=== PATIENT | female | born 1960 | race African-American/Black ===

== ENCOUNTER 2019-08-15 16:27 | Observation (INO) | payer BC ==
[2019-08-15] MEDS ORDERED: DEXTROSE 40% GEL 15 GM TUBE ONE (17:58)
--- NOTE | 2019-08-15 18:08 | ER Document Report ---
ED Medical Screen (RME) - General Chief Complaint: Blood Pressure Problem Stated Complaint: DIZZY,LIGHTHEADED Time Seen by Provider: 08/15/19 17:46 Primary Care Provider: DERICK WILEY MD [Primary Care Provider] - Follow up as needed Mode of Arrival: Ambulatory Information source: Patient Notes: 59-year-old female presented to ED for complaint of elevated blood pressure dizziness with no cough no fever no congestion while I was in the room talking to her she became very confused change in mentation slurred speech. She states she was feeling hot and cold closed her eyes was not answered before few seconds woke back up told me that she felt like her sugar was either high or low her Accu-Chek was 114. No facial droop as yet. Temperature 99.1 blood pressure 187/82 pulse 95. Patient was alert oriented speaking in full sentences when I first walked in the room and her mentation changed as I was there talking to her. For she stated she was diabetic and she needed something to eat and slowly regressed from there. Have ordered a stroke protocol she has been sent to CT. I have greeted and performed a rapid initial assessment of this patient. A comprehensive ED assessment and evaluation of the patient, analysis of test results and completion of medical decision making process will be conducted by an additional ED providers. TRAVEL OUTSIDE OF THE [place] IN LAST 30 DAYS: No - Related Data Allergies/Adverse Reactions: influenza virus vaccine, specific [influenza virus vacc,specific] Allergy (Unknown, Verified 09/15/15 12:29) amoxicillin [Amoxicillin] Allergy (Verified 09/04/15 10:54) Past Medical History - Social History Frequency of alcohol use: None Drug Abuse: None - Past Medical History Cardiac Medical History: Reports: Hx Hypertension - borderline Denies: Hx Coronary Artery Disease, Hx Heart Attack Pulmonary Medical History: Denies: Hx Asthma, Hx Bronchitis, Hx COPD, Hx Pneumonia Neurological Medical History: Denies: Hx Cerebrovascular Accident, Hx Seizures Musculoskeltal Medical History: Denies Hx Arthritis - Immunizations Hx Diphtheria, Pertussis, Tetanus Vaccination: Yes Physical Exam - Vital signs Vitals: Temp Pulse Resp BP Pulse Ox 99.3 F 115 H 18 146/125 H 94 08/15/19 16:32 08/15/19 16:32 08/15/19 16:32 08/15/19 16:32 08/15/19 16:32 Course - Vital Signs Vital signs: Temp Pulse Resp BP Pulse Ox 99.3 F 115 H 18 146/125 H 94 08/15/19 16:32 08/15/19 16:32 08/15/19 16:32 08/15/19 16:32 08/15/19 16:32 Doctor's Discharge - Discharge Referrals: DERICK WILEY MD [Primary Care Provider] - Follow up as needed
--- NOTE | 2019-08-15 18:32 | RADIOLOGY REPORT (SQ) ---
EXAM DESCRIPTION: CT HEAD WITHOUT IMAGES COMPLETED DATE/TIME: 08/15/2019 6:06 pm REASON FOR STUDY: slurred speech; change in patient in front of prov COMPARISON: 07/24/2010 TECHNIQUE: Axial images acquired through the brain without intravenous contrast. Images reviewed wi th bone, brain and subdural windows. Additional sagittal and coronal reconstructions were generated. Images stored on PACS. All CT scanners at this facility use dose modulation, iterative reconstruction, and/or weight based d osing when appropriate to reduce radiation dose to as low as reasonably achievable (ALARA). [facility]: Dose Right [facility]: CareDose [facility]: Dose Right [facility]: Teradose 4D [facility]: Smart [employer] RADIATION DOSE: CT Rad equipment meets quality standard of care and radiation dose reduction techniq ues were employed. CTDIvol: 53.2 mGy. DLP: 1017 mGy-cm. mGy. LIMITATIONS: None. FINDINGS: VENTRICLES: Normal size and contour. CEREBRUM: No masses. No hemorrhage. No midline shift. No evidence for acute infarction. Normal gra y/white matter differentiation. No areas of low density in the white matter. CEREBELLUM: No masses. No hemorrhage. No alteration of density. No evidence for acute infarction. EXTRAAXIAL SPACES: No fluid collections. No masses. ORBITS AND GLOBE: No intra- or extraconal masses. Normal contour of globe without masses. CALVARIUM: No fracture. PARANASAL SINUSES: No fluid or mucosal thickening. SOFT TISSUES: No mass or hematoma. OTHER: No other significant finding. IMPRESSION: NORMAL BRAIN CT WITHOUT CONTRAST. EVIDENCE OF ACUTE STROKE: NO. COMMENT: Findings were reported to Radha in in the emergency room at 1825 hours on this date. Quality ID # [id number]: Final reports with documentation of one or more dose reduction techniques (e.g., Au tomated exposure control, adjustment of the mA and/or kV according to patient size, use of iterative reconstruction technique) TECHNICAL DOCUMENTATION: JOB ID: [id number] 2010 [employer]- All Rights Reserved Reading location - IP/workstation name: [email or web address]
[2019-08-15 18:37] LABS: ABSOLUTE LYMPHOCYTES (AUTO) 0.9 10^3/uL (0.5-4.7); ABSOLUTE MONOCYTES (AUTO) 0.3 10^3/uL (0.1-1.4); ABSOLUTE NEUT (AUTO) 4.5 10^3/uL (1.7-8.2); BASOPHILS % (AUTO) 0.4 % (0-2); EOSINOPHILS % (AUTO) 0.7 % (0-6); HEMATOCRIT 39.2 % (36.0-47.0); HEMOGLOBIN 13.4 g/dL (12.0-15.5); LYMPHOCYTES % (AUTO) 15.7 % (13-45); MEAN CORPUSCULAR HEMOGLOBIN 30.2 pg (27.0-33.4); MEAN CORPUSCULAR HGB CONC 34.2 g/dL (32.0-36.0); MEAN CORPUSCULAR VOLUME 88 fl (80-97); MONOCYTES % (AUTO) 5.4 % (3-13); PLATELET COUNT 252 10^3/uL (150-450); RED BLOOD COUNT 4.44 10^6/uL (3.72-5.28); RED CELL DISTRIBUTION WIDTH 13.3 % (11.5-14.0); SEGMENTED NEUTROPHILS % (AUTO) 77.8 % (42-78); TOTAL CELLS COUNTED % (AUTO) 100 %; WHITE BLOOD COUNT 5.8 10^3/uL (4.0-10.5)
--- NOTE | 2019-08-15 18:38 | RADIOLOGY REPORT (SQ) ---
EXAM DESCRIPTION: CHEST SINGLE VIEW IMAGES COMPLETED DATE/TIME: 08/15/2019 6:09 pm REASON FOR STUDY: slurred speech; change in front of provider COMPARISON: None. EXAM PARAMETERS: NUMBER OF VIEWS: One view. TECHNIQUE: Single frontal radiographic view of the chest acquired. RADIATION DOSE: NA LIMITATIONS: None. FINDINGS: LUNGS AND PLEURA: No opacities, masses or pneumothorax. No pleural effusion. MEDIASTINUM AND HILAR STRUCTURES: No masses. Contour normal. HEART AND VASCULAR STRUCTURES: Heart normal in size. Normal vasculature. BONES: No acute findings. HARDWARE: None in the chest. OTHER: No other significant finding. IMPRESSION: NO ACUTE RADIOGRAPHIC FINDING IN THE CHEST. TECHNICAL DOCUMENTATION: JOB ID: [id number] 2010 [employer]- All Rights Reserved Reading location - IP/workstation name: [email or web address]
[2019-08-15 18:42] LABS: INTERNATIONAL RATION (INR) 1.03; PROTHROMBIN TIME 13.5 SEC (11.4-15.4)
[2019-08-15 18:50] LABS: ALBUMIN 4.8 g/dL (3.5-5.0); ALKALINE PHOSPHATASE 92 U/L (38-126); ANION GAP 11 (5-19); ASPARTATE AMINO TRANSFERASE 25 U/L (14-36); BILIRUBIN,DIRECT 0.1 mg/dL (0.0-0.4); BILIRUBIN,TOTAL 0.6 mg/dL (0.2-1.3); BLOOD UREA NITROGEN 14 mg/dL (7-20); CALCIUM 9.8 mg/dL (8.4-10.2); CARBON DIOXIDE 25 mmol/L (22-30); CHLORIDE 101 mmol/L (98-107); CREATINE KINASE 156 U/L (30-135); GLUCOSE 148 mg/dL (75-110); POTASSIUM 4.3 mmol/L (3.6-5.0); TOTAL PROTEIN 8.2 g/dL (6.3-8.2)
[2019-08-15 19:02] LABS: CREATINE KINASE MB 1.16 ng/mL (<4.55); TROPONIN I < 0.012 ng/mL
[2019-08-15] MEDS ORDERED: NORMAL SALINE 1000 ML 1,000 ML IV ONE (19:11)
[2019-08-15 19:50] LABS: PHOSPHORUS 3.6 mg/dL (2.5-4.5)
--- NOTE | 2019-08-15 19:56 | ER Document Report ---
ED General - General Chief Complaint: Blood Pressure Problem Stated Complaint: DIZZY,LIGHTHEADED Time Seen by Provider: 08/15/19 17:46 Primary Care Provider: DERICK WILEY MD [Primary Care Provider] - Follow up as needed Mode of Arrival: Ambulatory Information source: Patient TRAVEL OUTSIDE OF THE [place] IN LAST 30 DAYS: No - HPI Notes: 59-year-old female history of squamous cell skin cancer of leg in remission, hyperlipidemia, peripheral vertigo presents with 2 days of lightheadedness, generalized weakness, feeling "like I am going to pass out" and 2 to 3 weeks of intermittent chest pain. Chest pain described as "hurts when my heart beats" occurring several times throughout the day lasting for approximately 10 minutes occurring with exertion and at rest with more frequent episodes in the last few days. Patient denies any cardiac history (had stress test 5 years ago which was negative), history says hypertension and diabetes but patient and daughter state that she has "pre-hypertension and pre-diabetes." Patient referred to ED by prior PCP who measured a fever of 101.? at outpatient office. 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 patient denies cough, PE history, lower extremity edema, recent travel/surgery/immobilization, family hypercoagulability history, active cancer, focal weakness/numbness. Patient initially seen by TELECOMMUNICATION ENGINEER who is in the room evaluating patient when patient had ep isode of global weakness unable to lift any limbs against gravity and slurred speech lasting unknown duration. Patient had immediate head CT and is now back to pre episode baseline. - Related Data Allergies/Adverse Reactions: influenza virus vaccine, specific [influenza virus vacc,specific] Allergy (Unknown, Verified 09/15/15 12:29) amoxicillin [Amoxicillin] Allergy (Verified 09/04/15 10:54) Past Medical History - General Information source: Patient - Social History Smoking Status: Never Smoker Frequency of alcohol use: None Drug Abuse: None Patient has suicidal ideation: No Patient has homicidal ideation: No - Past Medical History Cardiac Medical History: Reports: None, Hx Hypercholesterolemia, Hx Hypertension - borderline Denies: Hx Coronary Artery Disease, Hx Heart Attack Pulmonary Medical History: Reports: None Denies: Hx Asthma, Hx Bronchitis, Hx COPD, Hx Pneumonia Neurological Medical History: Denies: Hx Cerebrovascular Accident, Hx Seizures Musculoskeletal Medical History: Denies Hx Arthritis - Immunizations Hx Diphtheria, Pertussis, Tetanus Vaccination: Yes Review of Systems - Review of Systems Notes: REVIEW OF SYSTEMS: CONSTITUTIONAL : Endorses fever, denies sweats. EENT: Endorses recent sinus congestion, endorses throat pain CARDIOVASCULAR: Endorses chest pain, denies JULISSA RESPIRATORY: Denies cough, denies shortness of breath. GASTROINTESTINAL: Denies abdominal pain, nausea/vomiting. GENITOURINARY: Denies difficulty urinating, painful urination. FEMALE GENITOURINARY: Denies abnormal vaginal bleeding, vaginal discharge. MUSCULOSKELETAL: Denies neck pain, back pain. SKIN: Denies rash or new skin lesions. HEMATOLOGIC : Denies easy bruising or bleeding. LYMPHATIC: Denies swollen, enlarged glands. NEUROLOGICAL: Denies headache, denies change in gait. PSYCHIATRIC: Denies anxiety or stress or depression. Physical Exam - Vital signs Vitals: Temp Pulse Resp BP Pulse Ox 99.3 F 115 H 18 146/125 H 94 08/15/19 16:32 08/15/19 16:32 08/15/19 16:32 08/15/19 16:32 08/15/19 16:32 - Notes Notes: PHYSICAL EXAMINATION: GENERAL: Well-appearing, well-nourished and in no acute distress. HEAD: Atraumatic, normocephalic. EYES: Pupils equal round and appropriate constriction, sclera anicteric, conjunctiva are normal. ENT: nares patent, moist mucous membranes. NECK: Normal range of motion, supple without lymphadenopathy, no carotid bruits LUNGS: Breath sounds clear to auscultation bilaterally and equal. No wheezes rales or rhonchi. HEART: Regular rate without murmurs, rubs, or gallops ABDOMEN: Soft, nontender, no guarding, no masses, no CVAT EXTREMITIES: Normal range of motion, no pitting or edema. No cyanosis. NEUROLOGICAL: Awake, alert, conversing appropriately, moves all extremities spontaneously. Cranial nerves II through XII intact, 5 out of 5 strength in all extremities, normal sensation, normal speech, [id number] within normal limits PSYCH: Normal mood, normal affect. SKIN: Warm, Dry, normal turgor, few healed biopsy scars noted. Course - Re-evaluation Re-evalutation: 08/15/19 20:00 Constellation of symptoms with wide differential including flu, covid-19, electrolyte abnormalities, ACS, PE, TIA. Patient on covid precautions in the ED. Initial EKG with no signs of acute ischemia and patient has remained on monitor throughout ED evaluation. No bleed and no acute abnormalities on head CT. Chest x-ray without emergent findings. Will obtain a electrolytes, dimer, troponin, flu test, coronavirus test and admit for monitoring, ACS and TIA rule out. 08/15/19 21:05 No emergent findings on initial work-up. Given concern for possible ACS versus arrhythmia versus TIA discussed patient with Dr. Tank Lynne who has accepted the patient for telemetry obvious admission. - Vital Signs Vital signs: Temp Pulse Resp BP Pulse Ox 99.1 F 95 19 187/82 H 100 08/15/19 18:00 08/15/19 18:00 08/15/19 18:47 08/15/19 18:00 08/15/19 18:47 - Laboratory Result Diagrams: 08/15/19 18:22 08/15/19 18:22 Laboratory results interpreted by me: 08/15/19 08/15/19 17:58 18:22 Glucose 148 H POC Glucose 114 H Creatine Kinase 156 H Discharge - Discharge Clinical Impression: Chest pain, Pre-syncope Condition: Good Disposition: ADMITTED OBSERVATION Admitting Provider: Maged (Hospitalist) Unit Admitted: Telemetry Referrals: DERICK WILEY MD [Primary Care Provider] - Follow up as needed
[2019-08-15 20:49] LABS: A TYPE INFLUENZA AG NEGATIVE (NEGATIVE); B INFLUENZA AG NEGATIVE (NEGATIVE)
[2019-08-15] MEDS ORDERED: DOCUSATE SODIUM 100 MG CAPSULE PO PRN (21:10)
[2019-08-15] MEDS ORDERED: ACETAMINOPHEN 325 MG TABLET PO PRN (21:10)
--- NOTE | 2019-08-15 21:48 | EKG REPORT ---
SEVERITY:- ABNORMAL ECG - SINUS RHYTHM LEFT ATRIAL ABNORMALITY PROBABLE LEFT VENTRICULAR HYPERTROPHY BORDERLINE T ABNORMALITIES, INFERIOR LEADS : Confirmed by: Susu De Luna MD 15-Aug-2019 21:48:14
[2019-08-16] MEDS: ATORVASTATIN CALCIUM 40 MG TABLET PO SCH ×2 (01:28→21:47)
[2019-08-16] MEDS: HEPARIN SOD (PORCINE) 5,000 UNIT/ML 1 ML VIAL SUBCUT SCH ×4 (01:28→21:47)
[2019-08-16 03:38] LABS: ABSOLUTE EOSINOPHILS # (AUTO) 0.1 10^3/uL (0.0-0.6); ABSOLUTE LYMPHOCYTES (AUTO) 1.3 10^3/uL (0.5-4.7); ABSOLUTE MONOCYTES (AUTO) 0.5 10^3/uL (0.1-1.4); ABSOLUTE NEUT (AUTO) 3.6 10^3/uL (1.7-8.2); BASOPHILS % (AUTO) 0.6 % (0-2); EOSINOPHILS % (AUTO) 2.1 % (0-6); HEMATOCRIT 37.4 % (36.0-47.0); HEMOGLOBIN 12.7 g/dL (12.0-15.5); LYMPHOCYTES % (AUTO) 23.1 % (13-45); MEAN CORPUSCULAR HEMOGLOBIN 30.1 pg (27.0-33.4); MEAN CORPUSCULAR HGB CONC 33.9 g/dL (32.0-36.0); MEAN CORPUSCULAR VOLUME 89 fl (80-97); MONOCYTES % (AUTO) 9.6 % (3-13); PLATELET COUNT 202 10^3/uL (150-450); RED BLOOD COUNT 4.21 10^6/uL (3.72-5.28); RED CELL DISTRIBUTION WIDTH 13.3 % (11.5-14.0); SEGMENTED NEUTROPHILS % (AUTO) 64.6 % (42-78); TOTAL CELLS COUNTED % (AUTO) 100 %; WHITE BLOOD COUNT 5.5 10^3/uL (4.0-10.5)
[2019-08-16 03:39] LABS: URINE AMPHETAMINES SCREEN NEGATIVE; URINE BARBITURATES SCREEN NEGATIVE; URINE BENZODIAZEPINES SCREEN NEGATIVE; URINE COCAINE SCREEN NEGATIVE; URINE MARIJUANA (THC) SCREEN NEGATIVE; URINE METHADONE SCREEN NEGATIVE; URINE PHENCYCLIDINE SCREEN NEGATIVE
[2019-08-16 04:21] LABS: TROPONIN I < 0.012 ng/mL
[2019-08-16 04:26] LABS: CHOLESTEROL 186.98 mg/dL (0-200); DIRECT LDL 124 mg/dL (<100); TRIGLYCERIDES 61 mg/dL (<150); VLDL CHOLESTEROL 12.2 mg/dL (10-31)
[2019-08-16] MEDS ORDERED: GLUCAGON,HUMAN RECOMB 1 MG INJ IM PRN (05:50)
[2019-08-16] MEDS ORDERED: DEXTROSE 50%-WATER 25 GM/50 ML DISP.SYRIN IV PRN ×2 (05:50)
[2019-08-16] MEDS ORDERED: DEXTROSE 40% GEL 15 GM TUBE PO PRN ×2 (05:50)
--- NOTE | 2019-08-16 06:30 | PDOC H&P ---
History of Present Illness Admission Date/PCP: 08/15/19 21:27 DERICK WILEY MD Patient complains of: Hypertension fever History of Present Illness: NAINA STEPHENS is a 59 year old female with a past medical history of sinusitis, dyslipidemia, diet-controlled diabetes and benign positional vertigo. She is referred to the emergency department by primary care provider after finding elevated blood pressure in the 180 range and a fever of greater than 100.2. In the emergency department she has multiple complaints. Elevated blood pressure, fever, and dizziness when she changes position. Her blood pressure is verified to be elevated and complains of 2 out of 5 dull, nonradiating intermittent left-sided chest pain not associated with shortness of breath, cough palpitations nausea or vomiting. She denies recent cardiac stress test. While in the emergency department she has a brief episode of global weakness and aphasia which resolved spontaneously without residual deficit. Her fever has not returned. She denies shortness of breath, cough, abdominal pain or diarrhea. 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 She is very concerned for exposure to covid 19. Subsequently a covid 19 test is obtained and pending. She is referred to the hospitalist for observation without complaints. Past Medical History Cardiac Medical History: Reports: Hyperlipidema Denies: Coronary Artery Disease, Myocardial Infarction Pulmonary Medical History: Reports: None Denies: Asthma, Bronchitis, Chronic Obstructive Pulmonary Disease (COPD), Pneumonia Neurological Medical History: Denies: Seizures Endocrine Medical History: Reports: Diabetes Mellitus Type 2 Musculoskeltal Medical History: Denies: Arthritis Psychiatric Medical History: Denies: Depression, Tobacco Dependency Hematology: Denies: Anemia Social History Information Source: Patient Smoking Status: Never Smoker Frequency of Alcohol Use: None Hx Recreational Drug Use: No Drugs: None Hx Prescription Drug Abuse: No - Advance Directive Resuscitation Status: Full Code Family History Family History: DM, Hypertension Parental Family History Reviewed: Yes Children Family History Reviewed: Yes Sibling(s) Family History Reviewed.: Yes Medication/Allergy Home Medications: Aspirin [Aspirin EC] 81 mg PO DAILY 09/04/15 Fexofenadine/Pseudoephedrine [Zoila-D 12 Hour Tablet] 1 each PO DAILY 09/04/15 Allergies/Adverse Reactions: influenza virus vaccine, specific [influenza virus vacc,specific] Allergy (Unknown, Verified 09/15/15 12:29) amoxicillin [Amoxicillin] Allergy (Verified 09/04/15 10:54) Review of Systems Constitutional: ABSENT: chills, fever(s), headache(s), weight gain, weight loss Eyes: ABSENT: visual disturbances Ears: ABSENT: hearing changes Cardiovascular: ABSENT: chest pain, dyspnea on exertion, edema, orthropnea, palpitations Respiratory: ABSENT: cough, hemoptysis Gastrointestinal: ABSENT: abdominal pain, constipation, diarrhea, hematemesis, hematochezia, nausea, vomiting Genitourinary: ABSENT: dysuria, hematuria Musculoskeletal: ABSENT: joint swelling Integumentary: ABSENT: rash, wounds Neurological: ABSENT: abnormal gait, abnormal speech, confusion, dizziness, focal weakness, syncope Psychiatric: ABSENT: anxiety, depression, homidical ideation, suicidal ideation Endocrine: ABSENT: cold intolerance, heat intolerance, polydipsia, polyuria Hematologic/Lymphatic: ABSENT: easy bleeding, easy bruising Physical Exam Vital Signs: Temp Pulse Resp BP Pulse Ox 98.9 F 74 16 160/58 H 97 08/16/19 02:28 08/16/19 04:00 08/16/19 04:00 08/16/19 04:00 08/16/19 04:00 Intake & Output 08/14/19 08/15/19 08/16/19 11:59 11:59 11:59 Intake Total 1240 Output Total 650 Balance 590 Weight 78.9 kg General appearance: PRESENT: no acute distress, well-developed, well-nourished Head exam: PRESENT: atraumatic, normocephalic Eye exam: PRESENT: conjunctiva pink, EOMI, PERRLA. ABSENT: scleral icterus Ear exam: PRESENT: normal external ear exam Mouth exam: PRESENT: moist, tongue midline Neck exam: ABSENT: carotid bruit, JVD, lymphadenopathy, thyromegaly Respiratory exam: PRESENT: clear to auscultation taylor. ABSENT: rales, rhonchi, wheezes Cardiovascular exam: PRESENT: RRR. ABSENT: diastolic murmur, rubs, systolic murmur Pulses: PRESENT: normal dorsalis pedis pul Vascular exam: PRESENT: normal capillary refill GI/Abdominal exam: PRESENT: normal bowel sounds, soft. ABSENT: distended, guarding, mass, organolmegaly, rebound, tenderness Rectal exam: PRESENT: deferred Extremities exam: PRESENT: full ROM. ABSENT: calf tenderness, clubbing, pedal edema Neurological exam: PRESENT: alert, awake, oriented to person, oriented to place, oriented to time, oriented to situation, CN II-XII grossly intact. ABSENT: motor sensory deficit Psychiatric exam: PRESENT: appropriate affect, normal mood. ABSENT: homicidal ideation, suicidal ideation Skin exam: PRESENT: dry, intact, warm. ABSENT: cyanosis, rash Results Laboratory Results: 08/16/19 03:30 08/15/19 18:22 08/15/19 08/15/19 08/15/19 18:22 18:22 18:22 WBC 5.8 RBC 4.44 Hgb 13.4 Hct 39.2 MCV 88 MCH 30.2 MCHC 34.2 RDW 13.3 Plt Count 252 Seg Neutrophils % 77.8 Sodium 137.1 Potassium 4.3 Chloride 101 Carbon Dioxide 25 Anion Gap 11 BUN 14 Creatinine 0.88 Est GFR ( Amer) > 60 Glucose 148 H Lactic Acid Calcium 9.8 Phosphorus 3.6 Magnesium 2.2 Total Bilirubin 0.6 AST 25 Alkaline Phosphatase 92 Total Protein 8.2 Albumin 4.8 Triglycerides Cholesterol LDL Cholesterol Direct VLDL Cholesterol HDL Cholesterol TSH 08/15/19 08/15/19 08/16/19 18:22 20:16 03:30 WBC 5.5 RBC 4.21 Hgb 12.7 Hct 37.4 MCV 89 MCH 30.1 MCHC 33.9 RDW 13.3 Plt Count 202 Seg Neutrophils % 64.6 Sodium Potassium Chloride Carbon Dioxide Anion Gap BUN Creatinine Est GFR ( Amer) Glucose Lactic Acid 0.8 Calcium Phosphorus Magnesium Total Bilirubin AST Alkaline Phosphatase Total Protein Albumin Triglycerides Cholesterol LDL Cholesterol Direct VLDL Cholesterol HDL Cholesterol TSH 0.74 08/16/19 03:30 WBC RBC Hgb Hct MCV MCH MCHC RDW Plt Count Seg Neutrophils % Sodium Potassium Chloride Carbon Dioxide Anion Gap BUN Creatinine Est GFR ( Amer) Glucose Lactic Acid Calcium Phosphorus Magnesium Total Bilirubin AST Alkaline Phosphatase Total Protein Albumin Triglycerides 61 Cholesterol 186.98 LDL Cholesterol Direct 124 H VLDL Cholesterol 12.2 HDL Cholesterol 46 TSH 08/15/19 08/15/19 08/16/19 18:22 18:22 03:30 Creatine Kinase 156 H 162 H CK-MB (CK-2) 1.16 Troponin I < 0.012 08/16/19 03:30 Creatine Kinase CK-MB (CK-2) 1.10 Troponin I < 0.012 Impressions: Head CT 08/15/19 00:00 IMPRESSION: NORMAL BRAIN CT WITHOUT CONTRAST. EVIDENCE OF ACUTE STROKE: NO. Chest X-Ray 08/15/19 18:00 IMPRESSION: NO ACUTE RADIOGRAPHIC FINDING IN THE CHEST. Assessment and Plan - Diagnosis (1) Fever Is this a current diagnosis for this admission?: Yes Plan: Unclear cause without recurrence, indirect contact with healthcare providers on a daily basis. Coronavirus 18 test pending. Continue isolation. (2) Diabetes Is this a current diagnosis for this admission?: Yes Plan: SOFY inhibitor and Humalog sliding scale, follow-up A1c (3) Chest pain Is this a current diagnosis for this admission?: Yes Plan: Atypical chest pain though the patient's pain is atypical there are multiple risk factors for coronary artery disease and subsequently will observe and evaluation of acute coronary syndrome versus coronary artery disease with anginal equivalents. Cardiac monitoring blood pressure Q6 hours ,TSH, lipid profile, serial cardiac enzymes and outpatient cardiac stress test (4) TIA (transient ischemic attack) Is this a current diagnosis for this admission?: Yes Plan: CVA care set deployed, permissive hypertension, follow-up risk factor evaluation, MRI and carotid Doppler. - Time Time Spent with patient: 25-34 minutes - Inpatient Certification Medical Necessity: Need Close Monitoring Due to Risk of Patient Decompensation
[2019-08-16 08:41] LABS: C-REACTIVE PROTEIN < 5.0 mg/L (<10.0)
--- NOTE | 2019-08-16 09:13 | RADIOLOGY REPORT (SQ) ---
EXAM DESCRIPTION: MRI HEAD WITHOUT IMAGES COMPLETED DATE/TIME: 08/16/2019 8:50 am REASON FOR STUDY: ataxia COMPARISON: CT dated 08/15/2019. TECHNIQUE: Multiplanar imaging includes non-contrasted T1, T2, FLAIR, and Diffusion with ADC map seq uences. Images stored on PACS. LIMITATIONS: None. FINDINGS: ANATOMY: No anomalies. Normal vascular flow voids. Pituitary fossa normal. CSF SPACES: Normal in size and contour. No hemorrhage. CEREBRUM: A few high-signal intensity lesions scattered throughout the white matter on FLAIR imaging with distribution suggesting chronic micro-vascular ischemic change. Sulci and gyri normal in size a nd contour. No evidence of hemorrhage, mass or extraaxial fluid collection. POSTERIOR FOSSA: No signal alteration. No hemorrhage. No edema, masses or mass effect. Internal jony tory canals, cerebello-pontine angles, mastoids normal. DIFFUSION: Negative for acute or sub-acute infarction. ORBITS: No masses. Globes normal. PARANASAL SINUSES: No fluid levels. Mucosa normal. OTHER: No other significant finding. IMPRESSION: MINIMAL MICROVASCULAR ISCHEMIC CHANGE. OTHERWISE NORMAL STUDY. EVIDENCE OF ACUTE STROKE: NO. TECHNICAL DOCUMENTATION: JOB ID: [id number] 2010 [employer]- All Rights Reserved Reading location - IP/workstation name: [email or web address]
--- NOTE | 2019-08-16 11:46 | PDOC PROGRESS REPORT ---
Subjective Progress Note for:: 08/16/19 Subjective:: 59 year old female with a past medical history of sinusitis, dyslipidemia, diet- controlled diabetes and benign positional vertigo. She is referred to the emergency department by primary care provider after finding elevated blood pressure in the 180 range and a fever of greater than 100.2. In the emergency department she has multiple complaints. Elevated blood pressure, fever, and dizziness when she changes position. Her blood pressure is verified to be elevated and complains of 2 out of 5 dull, nonradiating intermittent left-sided chest pain not associated with shortness of breath, cough palpitations nausea or vomiting. She denies recent cardiac stress test. While in the emergency department she has a brief episode of global weakness and aphasia which resolved spontaneously without residual deficit. Her fever has not returned. She denies shortness of breath, cough, abdominal pain or diarrhea. 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 She is very concerned for exposure to covid 19. Subsequently a covid 19 test is obtained and pending. She is referred to the hospitalist for observation without complaints. [id number] female admitted with a questionable fever and dizziness. Coronavirus testing is pending. MRI was done and stroke is ruled out. Comfortable in the bed communicating well. Not in distress. No acute events since the admission. Reason For Visit: TIA Physical Exam Vital Signs: Temp Pulse Resp BP Pulse Ox 98.5 F 84 20 130/56 H 98 08/16/19 08:00 08/16/19 08:00 08/16/19 08:00 08/16/19 08:00 08/16/19 08:00 Intake & Output 08/15/19 08/16/19 08/17/19 06:59 06:59 06:59 Intake Total 1240 Output Total 650 Balance 590 Weight 78.9 kg General appearance: PRESENT: no acute distress, well-developed Head exam: PRESENT: atraumatic Eye exam: PRESENT: PERRLA Mouth exam: PRESENT: moist, tongue midline Teeth exam: PRESENT: poor dentation Neck exam: ABSENT: carotid bruit, JVD, lymphadenopathy, thyromegaly Cardiovascular exam: PRESENT: RRR. ABSENT: diastolic murmur, rubs, systolic murmur GI/Abdominal exam: PRESENT: normal bowel sounds, soft. ABSENT: distended, guarding, mass, organolmegaly, rebound, tenderness Rectal exam: PRESENT: deferred Extremities exam: PRESENT: full ROM. ABSENT: calf tenderness, clubbing, pedal edema Neurological exam: PRESENT: alert, awake, oriented to person, oriented to place, oriented to time, oriented to situation, CN II-XII grossly intact. ABSENT: motor sensory deficit Psychiatric exam: PRESENT: appropriate affect, normal mood. ABSENT: homicidal ideation, suicidal ideation Results Laboratory Results: 08/16/19 03:30 08/15/19 18:22 08/15/19 08/15/19 08/15/19 18:22 18:22 18:22 WBC 5.8 RBC 4.44 Hgb 13.4 Hct 39.2 MCV 88 MCH 30.2 MCHC 34.2 RDW 13.3 Plt Count 252 Seg Neutrophils % 77.8 Sodium 137.1 Potassium 4.3 Chloride 101 Carbon Dioxide 25 Anion Gap 11 BUN 14 Creatinine 0.88 Est GFR ( Amer) > 60 Glucose 148 H Lactic Acid Calcium 9.8 Phosphorus 3.6 Magnesium 2.2 Ferritin Total Bilirubin 0.6 AST 25 Alkaline Phosphatase 92 C-Reactive Protein Total Protein 8.2 Albumin 4.8 Triglycerides Cholesterol LDL Cholesterol Direct VLDL Cholesterol HDL Cholesterol TSH 08/15/19 08/15/19 08/16/19 18:22 20:16 03:30 WBC 5.5 RBC 4.21 Hgb 12.7 Hct 37.4 MCV 89 MCH 30.1 MCHC 33.9 RDW 13.3 Plt Count 202 Seg Neutrophils % 64.6 Sodium Potassium Chloride Carbon Dioxide Anion Gap BUN Creatinine Est GFR ( Amer) Glucose Lactic Acid 0.8 Calcium Phosphorus Magnesium Ferritin Total Bilirubin AST Alkaline Phosphatase C-Reactive Protein Total Protein Albumin Triglycerides Cholesterol LDL Cholesterol Direct VLDL Cholesterol HDL Cholesterol TSH 0.74 08/16/19 08/16/19 03:30 03:30 WBC RBC Hgb Hct MCV MCH MCHC RDW Plt Count Seg Neutrophils % Sodium Potassium Chloride Carbon Dioxide Anion Gap BUN Creatinine Est GFR ( Amer) Glucose Lactic Acid Calcium Phosphorus Magnesium Ferritin 113.00 Total Bilirubin AST Alkaline Phosphatase C-Reactive Protein < 5.0 Total Protein Albumin Triglycerides 61 Cholesterol 186.98 LDL Cholesterol Direct 124 H VLDL Cholesterol 12.2 HDL Cholesterol 46 TSH 08/15/19 08/15/19 08/16/19 18:22 18:22 03:30 Creatine Kinase 156 H 162 H CK-MB (CK-2) 1.16 Troponin I < 0.012 08/16/19 03:30 Creatine Kinase CK-MB (CK-2) 1.10 Troponin I < 0.012 Impressions: Head CT 08/15/19 00:00 IMPRESSION: NORMAL BRAIN CT WITHOUT CONTRAST. EVIDENCE OF ACUTE STROKE: NO. Chest X-Ray 08/15/19 18:00 IMPRESSION: NO ACUTE RADIOGRAPHIC FINDING IN THE CHEST. Head MRI 08/16/19 00:00 IMPRESSION: MINIMAL MICROVASCULAR ISCHEMIC CHANGE. OTHERWISE NORMAL STUDY. EVIDENCE OF ACUTE STROKE: NO. Assessment and Plan - Diagnosis (1) Fever Is this a current diagnosis for this admission?: Yes Plan: Unclear cause without recurrence, indirect contact with healthcare providers on a daily basis. Coronavirus 18 test pending. Continue isolation. 08/16/2019-patient admitted with questionable fever T-max is 98.5 this morning. Coronavirus testing is pending plan is to continue to keep her in a droplet isolation. Patient is not on antibiotics at this time. (2) Diabetes Is this a current diagnosis for this admission?: No Plan: SOFY inhibitor and Humalog sliding scale, follow-up A1c 08/16/2019-patient has history of type 2 diabetes mellitus plan is to continue insulin sliding scale. Hemoglobin A1c 7.1. Diet exercise weight loss lifestyle modifications are discussed with the patient. (3) Chest pain Is this a current diagnosis for this admission?: Yes Plan: Atypical chest pain though the patient's pain is atypical there are multiple risk factors for coronary artery disease and subsequently will observe and evaluation of acute coronary syndrome versus coronary artery disease with anginal equivalents. Cardiac monitoring blood pressure Q6 hours ,TSH, lipid profile, serial cardiac enzymes and outpatient cardiac stress test 08/16/2019-patient complaining of nonspecific chest pain in the emergency room troponins are negative so far. (4) TIA (transient ischemic attack) Is this a current diagnosis for this admission?: Yes Plan: CVA care set deployed, permissive hypertension, follow-up risk factor evaluation, MRI and carotid Doppler. 08/16/2019-CVA/stroke protocol was implemented CT head is negative for acute pathology, MRI is negative for acute pathology. Doppler is pending. Stroke is unlikely. (5) HTN (hypertension) Is this a current diagnosis for this admission?: No Plan: 08/16/2019-patient has history of chronic essential hypertension blood pressure is 130/56. Stable. Plan is to continue the home medications at this time.
[2019-08-16] MEDS: AMLODIPINE BESYLATE 2.5 MG TABLET PO SCH (12:22)
[2019-08-16] MEDS: LOSARTAN POTASSIUM 25 MG TABLET PO SCH (12:22)
[2019-08-16 12:25] LABS: CREATINE KINASE MB 0.97 ng/mL (<4.55)
[2019-08-16 12:30] LABS: TROPONIN I < 0.012 ng/mL
--- NOTE | 2019-08-16 14:54 | RADIOLOGY REPORT (SQ) ---
EXAM DESCRIPTION: CAROTID DOPPLER IMAGES COMPLETED DATE/TIME: 08/16/2019 2:22 pm REASON FOR STUDY: tia COMPARISON: 07/29/2010. TECHNIQUE: Grayscale ultrasound, Doppler velocity and spectra, and color Doppler images acquired of the extra-cranial carotid and vertebral arteries. Images stored on PACS. LIMITATIONS: None. FINDINGS: RIGHT CAROTID CCA Velocities: Within normal limits. ICA Velocities Peak systolic 0.97 m/s. End diastolic 0.26 m/s. Proximal ICA/CCA peak systolic ratio 1.2. Spectra normal. No significant plaque. LEFT CAROTID CCA Velocities: Within normal limits. ICA Velocities Peak systolic 1.05 m/s. End diastolic 0.3 m/s. Proximal ICA/CCA peak systolic ratio 1.3. Spectra normal. No significant plaque. VERTEBRAL ARTERIES: Antegrade flow. Normal waveforms. SUBCLAVIAN ARTERIES: No finding. OTHER: No other significant finding. IMPRESSION: NO HEMODYNAMICALLY SIGNIFICANT STENOSIS. COMMENT: Quality ID #[id number]: Velocity criteria are extrapolated from the diameter data as defined by t he Society of Radiologists in Ultrasound Consensus Conference. Radiology 2003: 229; 340-346. TECHNICAL DOCUMENTATION: JOB ID: [id number] 2010 [employer]- All Rights Reserved Reading location - IP/workstation name: [email or web address]
[2019-08-16] MEDS: INSULIN LISPRO 100 UNIT/ML 3 ML VIAL SUBCUT SCH ×2 (16:14→17:46)
[2019-08-16 20:06] LABS: CREATINE KINASE MB 0.65 ng/mL (<4.55)
[2019-08-16 20:12] LABS: TROPONIN I < 0.012 ng/mL
[2019-08-17] MEDS: HEPARIN SOD (PORCINE) 5,000 UNIT/ML 1 ML VIAL SUBCUT SCH ×2 (05:12→13:22)
[2019-08-17 06:29] LABS: ABSOLUTE EOSINOPHILS # (AUTO) 0.4 10^3/uL (0.0-0.6); ABSOLUTE LYMPHOCYTES (AUTO) 1.3 10^3/uL (0.5-4.7); ABSOLUTE MONOCYTES (AUTO) 0.4 10^3/uL (0.1-1.4); ABSOLUTE NEUT (AUTO) 2.4 10^3/uL (1.7-8.2); BASOPHILS % (AUTO) 0.8 % (0-2); EOSINOPHILS % (AUTO) 9.1 % (0-6); HEMATOCRIT 39.1 % (36.0-47.0); HEMOGLOBIN 13.2 g/dL (12.0-15.5); LYMPHOCYTES % (AUTO) 28.3 % (13-45); MEAN CORPUSCULAR HEMOGLOBIN 29.7 pg (27.0-33.4); MEAN CORPUSCULAR HGB CONC 33.8 g/dL (32.0-36.0); MEAN CORPUSCULAR VOLUME 88 fl (80-97); PLATELET COUNT 212 10^3/uL (150-450); RED BLOOD COUNT 4.46 10^6/uL (3.72-5.28); RED CELL DISTRIBUTION WIDTH 13.2 % (11.5-14.0); SEGMENTED NEUTROPHILS % (AUTO) 53.8 % (42-78); TOTAL CELLS COUNTED % (AUTO) 100 %; WHITE BLOOD COUNT 4.5 10^3/uL (4.0-10.5)
[2019-08-17 06:55] LABS: ALKALINE PHOSPHATASE 74 U/L (38-126); ASPARTATE AMINO TRANSFERASE 22 U/L (14-36); BILIRUBIN,TOTAL 0.8 mg/dL (0.2-1.3); BLOOD UREA NITROGEN 16 mg/dL (7-20); CALCIUM 9.4 mg/dL (8.4-10.2); CHLORIDE 105 mmol/L (98-107); GLUCOSE 123 mg/dL (75-110); POTASSIUM 4.1 mmol/L (3.6-5.0)
[2019-08-17 07:17] LABS: CARBON DIOXIDE 27 mmol/L (22-30)
[2019-08-17 07:19] LABS: ANION GAP 5 (5-19)
[2019-08-17] MEDS: INSULIN LISPRO 100 UNIT/ML 3 ML VIAL SUBCUT SCH ×2 (08:49→13:16)
[2019-08-17] MEDS ORDERED: CHOLECALCIFEROL (D3) 1,000 UNIT (25 MCG) TABLET PO SCH (10:00)
[2019-08-17] MEDS ORDERED: LORATADINE 10 MG TABLET PO SCH (10:00)
[2019-08-17] MEDS ORDERED: ASPIRIN 81 MG TABLET, ENT COATED PO SCH (10:00)
[2019-08-17] MEDS ORDERED: UBIDECARENONE 50 MG PO SCH (10:00)
[2019-08-17] MEDS ORDERED: (PENDING PHARMACY ID) (Fexofenadine Hcl [Allegra Allergy] 180 MG) PO SCH (10:00)
[2019-08-17] MEDS ORDERED: FLUTICASONE NASAL SPRAY 50 MCG/SPRY 120 SPRAY/16 GM NASL SCH (10:00)
[2019-08-17] MEDS: LOSARTAN POTASSIUM 25 MG TABLET PO SCH (10:04)
[2019-08-17] MEDS: AMLODIPINE BESYLATE 2.5 MG TABLET PO SCH (10:04)
--- NOTE | 2019-08-17 15:50 | PDOC DISCHARGE SUMMARY ---
Impression - Admit/DC Date/PCP Admission Date/Primary Care Provider: 08/15/19 21:27 DERICK WILEY MD Discharge Date: 08/17/19 - Discharge Diagnosis (1) Fever Is this a current diagnosis for this admission?: Yes (2) Diabetes Is this a current diagnosis for this admission?: No (3) Chest pain Is this a current diagnosis for this admission?: Yes (4) TIA (transient ischemic attack) Is this a current diagnosis for this admission?: Yes (5) HTN (hypertension) Is this a current diagnosis for this admission?: No - Assessment Summary: 59-year-old female with history of sinusitis, dyslipidemia, diet-controlled diabetes mellitus, benign positional vertigo referred by the primary care physician for elevated blood pressures and a fever of more than 100.2. In the emergency room patient has a short episode of aphasia with global weakness and medical consult was called for admission and to rule out stroke. CT head was negative carotid Doppler is negative for stenosis MRI of the brain is negative for strokes. Coronavirus testing came back negative. Patient can be safely discharged today to be followed up with primary care physician. (1) Fever Is this a current diagnosis for this admission?: Yes Plan: Unclear cause without recurrence, indirect contact with healthcare providers on a daily basis. Coronavirus 18 test pending. Continue isolation. 08/16/2019-patient admitted with questionable fever T-max is 98.5 this morning. Coronavirus testing is pending plan is to continue to keep her in a droplet isolation. Patient is not on antibiotics at this time. 08/17/2019-patient is afebrile throughout the hospital course and coronavirus testing came back negative. (2) Diabetes Is this a current diagnosis for this admission?: No Plan: SOFY inhibitor and Humalog sliding scale, follow-up A1c 08/16/2019-patient has history of type 2 diabetes mellitus plan is to continue insulin sliding scale. Hemoglobin A1c 7.1. Diet exercise weight loss lifestyle modifications are discussed with the patient. 08/17/2019-patient is advised to follow-up with primary care physician for further management. Hemoglobin A1c 7.1 diet exercise weight loss and lifestyle modifications discussed with the patient again today. (3) Chest pain Is this a current diagnosis for this admission?: Yes Plan: Atypical chest pain though the patient's pain is atypical there are multiple risk factors for coronary artery disease and subsequently will observe and evaluation of acute coronary syndrome versus coronary artery disease with anginal equivalents. Cardiac monitoring blood pressure Q6 hours ,TSH, lipid profile, serial cardiac enzymes and outpatient cardiac stress test 08/16/2019-patient complaining of nonspecific chest pain in the emergency room troponins are negative so far. 08/17/19-patient complex for nonspecific chest pains in the emergency room cardiac work-up was negative in the hospital. (4) TIA (transient ischemic attack) Is this a current diagnosis for this admission?: Yes Plan: CVA care set deployed, permissive hypertension, follow-up risk factor evaluation, MRI and carotid Doppler. 08/16/2019-CVA/stroke protocol was implemented CT head is negative for acute pathology, MRI is negative for acute pathology. Doppler is pending. Stroke is unlikely. 08/17/2019-patient admitted with transient ischemic attack and carotid Doppler is negative for high-grade stenosis, MRI of the brain is negative CT head was negative for acute pathology. Prescription were given for statins. (5) HTN (hypertension) Is this a current diagnosis for this admission?: No Plan: 08/16/2019-patient has history of chronic essential hypertension blood pressure is 130/56. Stable. Plan is to continue the home medications at this time. 08/17/2019-blood pressure is 152/75 today and patient is going home on lisinopril, amlodipine. Advised her to be compliant with her medications. - Additional Information Resuscitation Status: Full Code Discharge Diet: Diabetic Discharge Activity: Activity As Tolerated Referrals: [facility] [Outside] (PATIENT TO BE FOLLOWED BY HEALTH DEPT. ON SELF QUARANTINE AT HOME. ONCE THE HEALTH DEPT. RELEASES PATIENT THEN PATIENT MAY SCHEDULE A FOLLOW UP APPT. WITH PCP.) DERICK WILEY MD [Primary Care Provider] - Follow up as needed Prescriptions: Losartan Potassium [Cozaar 25 mg Tablet] 25 mg PO DAILY #30 tablet Atorvastatin Calcium [Lipitor 40 mg Tablet] 40 mg PO QHS #30 tablet Amlodipine Besylate [Norvasc 2.5 mg Tablet] 2.5 mg PO DAILY #30 tablet Home Medications: Aspirin [Aspirin EC] 81 mg PO DAILY 09/04/15 Cholecalciferol (Vitamin D3) [Vitamin D3 1000 Unit Tablet] 1,000 unit PO DAILY 08/16/19 Fexofenadine HCl [Zoila Allergy] 180 mg PO DAILY 08/16/19 Fluticasone Propionate [Flonase Nasal [place] 50 Mcg/[place] 16 gm] 1 spray NASL DAILY 08/16/19 Ubidecarenone [Coq10] 50 mg PO DAILY 08/16/19 Amlodipine Besylate [Norvasc 2.5 mg Tablet] 2.5 mg PO DAILY #30 tablet 08/17/19 Atorvastatin Calcium [Lipitor 40 mg Tablet] 40 mg PO QHS #30 tablet 08/17/19 Losartan Potassium [Cozaar 25 mg Tablet] 25 mg PO DAILY #30 tablet 08/17/19 History of Present Illiness History of Present Illness: NAINA STEPHENS is a 59 year old female 59 year old female with a past medical history of sinusitis, dyslipidemia, diet-controlled diabetes and benign positional vertigo. She is referred to the emergency department by primary care provider after finding elevated blood pressure in the 180 range and a fever of greater than 100.2. In the emergency department she has multiple complaints. Elevated blood pressure, fever, and dizziness when she changes position. Her blood pressure is verified to be elevated and complains of 2 out of 5 dull, nonradiating intermittent left-sided chest pain not associated with shortness of breath, cough palpitations nausea or vomiting. She denies recent cardiac stress test. While in the emergency department she has a brief episode of global weakness and aphasia which resolved spontaneously without residual deficit. Her fever has not returned. She denies shortness of breath, cough, abdominal pain or diarrhea. 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 She is very concerned for exposure to covid 19. Subsequently a covid 19 test is obtained and pending. She is referred to the hospitalist for observation without complaints. Hospital Course Hospital Course: 59 year old female with a past medical history of sinusitis, dyslipidemia, diet- controlled diabetes and benign positional vertigo. She is referred to the emergency department by primary care provider after finding elevated blood pressure in the 180 range and a fever of greater than 100.2. In the emergency department she has multiple complaints. Elevated blood pressure, fever, and dizziness when she changes position. Her blood pressure is verified to be elevated and complains of 2 out of 5 dull, nonradiating intermittent left-sided chest pain not associated with shortness of breath, cough palpitations nausea or vomiting. She denies recent cardiac stress test. While in the emergency department she has a brief episode of global weakness and aphasia which resolved spontaneously without residual deficit. Her fever has not returned. She denies shortness of breath, cough, abdominal pain or diarrhea. 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 She is very concerned for exposure to covid 19. Subsequently a covid 19 test is obtained and pending. She is referred to the hospitalist for observation without complaints. 08/17/2019-coronavirus testing came back negative. Stroke work-up was done during the hospital stay including CT head, carotid Doppler, MRI of the brain all of them are came back negative for acute pathology. Patient is going home on atorvastatin, blood pressure medications. Physical Exam Vital Signs: Temp Pulse Resp BP Pulse Ox 99.0 F 105 H 20 152/75 H 100 08/17/19 13:01 08/17/19 13:01 08/17/19 13:01 08/17/19 13:01 08/17/19 13:01 Intake & Output 08/16/19 08/17/19 08/18/19 06:59 06:59 06:59 Intake Total 1240 1520 Output Total 650 700 Balance 590 820 Weight 78.9 kg 78.3 kg General appearance: PRESENT: no acute distress, obese Head exam: PRESENT: atraumatic Eye exam: PRESENT: PERRLA Mouth exam: PRESENT: moist, tongue midline Teeth exam: PRESENT: poor dentation Neck exam: ABSENT: carotid bruit, JVD, lymphadenopathy, thyromegaly Respiratory exam: PRESENT: clear to auscultation taylor. ABSENT: rales, rhonchi, wheezes Cardiovascular exam: PRESENT: RRR. ABSENT: diastolic murmur, rubs, systolic murmur GI/Abdominal exam: PRESENT: normal bowel sounds, soft. ABSENT: distended, guarding, mass, organolmegaly, rebound, tenderness Rectal exam: PRESENT: deferred Extremities exam: PRESENT: full ROM. ABSENT: calf tenderness, clubbing, pedal edema Neurological exam: PRESENT: alert, awake, oriented to person, oriented to place, oriented to time, oriented to situation, CN II-XII grossly intact. ABSENT: motor sensory deficit Psychiatric exam: PRESENT: appropriate affect, normal mood. ABSENT: homicidal ideation, suicidal ideation Results Laboratory Results: WBC 4.5 10^3/uL (4.0-10.5) 08/17/19 05:47 RBC 4.46 10^6/uL (3.72-5.28) 08/17/19 05:47 Hgb 13.2 g/dL (12.0-15.5) 08/17/19 05:47 Hct 39.1 % (36.0-47.0) 08/17/19 05:47 MCV 88 fl (80-97) 08/17/19 05:47 MCH 29.7 pg (27.0-33.4) 08/17/19 05:47 MCHC 33.8 g/dL (32.0-36.0) 08/17/19 05:47 RDW 13.2 % (11.5-14.0) 08/17/19 05:47 Plt Count 212 10^3/uL (150-450) 08/17/19 05:47 Lymph % (Auto) 28.3 % (13-45) 08/17/19 05:47 Mccormick % (Auto) 8.0 % (3-13) 08/17/19 05:47 Eos % (Auto) 9.1 % (0-6) H 08/17/19 05:47 Baso % (Auto) 0.8 % (0-2) 08/17/19 05:47 Absolute Neuts (auto) 2.4 10^3/uL (1.7-8.2) 08/17/19 05:47 Absolute Lymphs (auto) 1.3 10^3/uL (0.5-4.7) 08/17/19 05:47 Absolute Monos (auto) 0.4 10^3/uL (0.1-1.4) 08/17/19 05:47 Absolute Eos (auto) 0.4 10^3/uL (0.0-0.6) 08/17/19 05:47 Absolute Basos (auto) 0.0 10^3/uL (0.0-0.2) 08/17/19 05:47 Seg Neutrophils % 53.8 % (42-78) 08/17/19 05:47 ESR 19 mm/hr (0-30) 08/16/19 00:32 PT 13.5 SEC (11.4-15.4) 08/15/19 18:22 INR 1.03 08/15/19 18:22 APTT 27.0 SEC (23.5-35.8) 08/15/19 18:22 D-Dimer 0.35 ug/mL (0.00-0.50) 08/15/19 18:22 Sodium 137.4 mmol/L (137-145) 08/17/19 05:47 Potassium 4.1 mmol/L (3.6-5.0) 08/17/19 05:47 Chloride 105 mmol/L (98-107) 08/17/19 05:47 Carbon Dioxide 27 mmol/L (22-30) 08/17/19 05:47 Anion Gap 5 (5-19) 08/17/19 05:47 BUN 16 mg/dL (7-20) 08/17/19 05:47 Creatinine 0.95 mg/dL (0.52-1.25) 08/17/19 05:47 Est GFR ( Amer) > 60 (>60) 08/17/19 05:47 Est GFR (MDRD) Non-Af > 60 (>60) 08/17/19 05:47 Glucose 123 mg/dL (75-110) H 08/17/19 05:47 POC Glucose 96 mg/dL (70-110) 08/17/19 12:59 Hemoglobin A1c % 7.1 % (4.7-6.0) H 08/15/19 18:22 Lactic Acid 0.8 mmol/L (0.7-2.1) 08/15/19 20:16 Calcium 9.4 mg/dL (8.4-10.2) 08/17/19 05:47 Phosphorus 3.6 mg/dL (2.5-4.5) 08/15/19 18:22 Magnesium 2.3 mg/dL (1.6-2.3) 08/17/19 05:47 Ferritin 113.00 ng/mL (11.1-264.0) 08/16/19 03:30 Total Bilirubin 0.8 mg/dL (0.2-1.3) 08/17/19 05:47 Direct Bilirubin 0.0 mg/dL (0.0-0.4) 08/17/19 05:47 Neonat Total Bilirubin Not Reportable 08/17/19 05:47 Neonat Direct Bilirubin Not Reportable 08/17/19 05:47 Neonat Indirect Bili Not Reportable 08/17/19 05:47 AST 22 U/L (14-36) 08/17/19 05:47 ALT 15 U/L (<35) 08/17/19 05:47 Alkaline Phosphatase 74 U/L (38-126) 08/17/19 05:47 Creatine Kinase 129 U/L (30-135) 08/16/19 19:25 CK-MB (CK-2) 0.65 ng/mL (<4.55) 08/16/19 19:25 Troponin I < 0.012 ng/mL 08/16/19 19:25 C-Reactive Protein < 5.0 mg/L (<10.0) 08/16/19 03:30 Total Protein 7.0 g/dL (6.3-8.2) 08/17/19 05:47 Albumin 4.0 g/dL (3.5-5.0) 08/17/19 05:47 Triglycerides 61 mg/dL (<150) 08/16/19 03:30 Cholesterol 186.98 mg/dL (0-200) 08/16/19 03:30 LDL Cholesterol Direct 124 mg/dL (<100) H 08/16/19 03:30 VLDL Cholesterol 12.2 mg/dL (10-31) 08/16/19 03:30 HDL Cholesterol 46 mg/dL (>40) 08/16/19 03:30 Procalcitonin 0.05 ng/mL (0.00-0.08) 08/16/19 03:30 TSH 0.74 uIU/mL (0.47-4.68) 08/15/19 18:22 Urine Opiates Screen NEGATIVE 08/16/19 03:00 Urine Methadone Screen NEGATIVE 08/16/19 03:00 Ur Barbiturates Screen NEGATIVE 08/16/19 03:00 Ur Phencyclidine Scrn NEGATIVE 08/16/19 03:00 Ur Amphetamines Screen NEGATIVE 08/16/19 03:00 U Benzodiazepines Scrn NEGATIVE 08/16/19 03:00 Urine Cocaine Screen NEGATIVE 08/16/19 03:00 U Marijuana (THC) Screen NEGATIVE 08/16/19 03:00 COVID-19 Source NASOPHARYNGEAL 08/15/19 22:09 COVID-19 (ZAIDA) NOT DETECTED 08/15/19 22:09 Influenza A (Rapid) NEGATIVE (NEGATIVE) 08/15/19 20:16 Influenza B (Rapid) NEGATIVE (NEGATIVE) 08/15/19 20:16 08/15/19 08/16/19 08/16/19 18:22 03:30 11:31 CK-MB (CK-2) 1.16 1.10 0.97 Troponin I < 0.012 < 0.012 < 0.012 08/16/19 19:25 CK-MB (CK-2) 0.65 Troponin I < 0.012 Impressions: Head CT 08/15/19 00:00 IMPRESSION: NORMAL BRAIN CT WITHOUT CONTRAST. EVIDENCE OF ACUTE STROKE: NO. Chest X-Ray 08/15/19 18:00 IMPRESSION: NO ACUTE RADIOGRAPHIC FINDING IN THE CHEST. Carotid Doppler Study 08/16/19 00:00 IMPRESSION: NO HEMODYNAMICALLY SIGNIFICANT STENOSIS. Head MRI 08/16/19 00:00 IMPRESSION: MINIMAL MICROVASCULAR ISCHEMIC CHANGE. OTHERWISE NORMAL STUDY. EVIDENCE OF ACUTE STROKE: NO. Plan Plan of Treatment: pt advised to be compliant with medications and requested to follow-up with primary care physician early next week. Time Spent: Greater than 30 Minutes Stroke Is this a Stroke Patient?: No Acute Heart Failure - Is this a Heart Failure Patient?: No
[2019-08-17 16:16] VITALS: BP 137/64
== END 2019-08-17 17:01 | disposition home or self-care (01) ==
LOC: ER 16:27 → EH 21:27 → 5 08-16 02:30
PROVIDERS: ADMIT Internal Medicine; ATTEND Internal Medicine
DX: G45.9 Transient cerebral ischemic attack, unspecified (principal); R50.9 Fever, unspecified; E11.9 Type 2 diabetes mellitus without complications; R07.89 Other chest pain; I10 Essential (primary) hypertension; R09.81 Nasal congestion; R07.0 Pain in throat; E78.5 Hyperlipidemia, unspecified; R55 Syncope and collapse; E66.9 Obesity, unspecified; Z03.818 Encounter for observation for suspected exposure to other biological agents ruled out; Z82.49 Family history of ischemic heart disease and other diseases of the circulatory system; Z83.3 Family history of diabetes mellitus; Z85.828 Personal history of other malignant neoplasm of skin
CPT/HCPCS: 93005; 99285; 96360; 96361; 36415 ×3; 82553 ×2; 84145; 82962 ×3; 82550 ×2; 82728; 83605; 83735 ×2; 84100; 84443; 85025 ×3; 85652; 85610; 85730; 87635; 86140; 80053 ×2; 84484 ×2; 80307; 83036; 85379; 80061; 87804; 93880; 70551; 71045; 70450; 93010; 97116; 97161; J1644 ×2; J3490 ×2; J7030; G0378

== ENCOUNTER 2019-11-27 08:37 | Emergency (ER) | payer BC ==
--- NOTE | 2019-11-27 09:38 | EKG REPORT ---
SEVERITY:- BORDERLINE ECG - SINUS RHYTHM PROBABLE LEFT ATRIAL ABNORMALITY : Confirmed by: Kendrick Blanchard 27-Nov-2019 09:37:57
--- NOTE | 2019-11-27 09:40 | ER Document Report ---
ED Blood Pressure Problem - General Chief Complaint: Blood Pressure Problem Stated Complaint: BLOOD PRESSURE ISSUE Time Seen by Provider: 11/27/19 09:09 Primary Care Provider: DERICK WILEY MD [Primary Care Provider] - Follow up as needed Notes: HPI: 59-year-old female that presents today stating around 2 days ago she felt a little nauseous while she was walking into [employer]. She did not vomit. She states she had some "smelly" flatulence. No abdominal pain. She states the night before last she also had an episode of nausea and had 2 bouts of loose stool. She felt clammy at that time. She states yesterday she had some nonspecific chest and shoulder pain but denies any such pain today. No radiation. No aggravating relieving factors. No runny nose, congestion, or cough. No headache. No calf pain or leg swelling. She has a home blood pressure monitor and noted an elevated blood pressure this morning. Blood pressure here as recorded. ROS: See HPI All other review of systems reviewed and otherwise negative Reviewed vital signs and nursing note as charted by RN. PHYSICAL EXAM: CONSTITUTIONAL: Alert and oriented and responds appropriately to questions. Well-appearing; well-nourished HEAD: Normocephalic; atraumatic EYES: PERRL; Conjunctivae clear, full extraocular range of motion ENT: Normal nose; no rhinorrhea; moist mucous membranes; pharynx without lesions noted NECK: Supple without meningismus; non-tender; no cervical lymphadenopathy, no masses CARD: Regular rate and rhythm; no murmurs; symmetric distal pulses RESP: Normal chest excursion without splinting or tachypnea; breath sounds clear and equal bilaterally; no wheezes, no rhonchi, no rales ABD/GI: Normal bowel sounds; non-distended; soft, non-tender to deep palpation of all 4 quadrants of the abdomen BACK: The back appears normal and is non-tender to palpation EXT: Normal ROM in all joints; non-tender to palpation; no edema SKIN: No acute lesions noted NEURO: CN 2-12 intact; 5/5 bilateral upper and lower extremity strength with sensation intact to light touch PSYCH: The patient's mood and manner are appropriate. Grooming and personal hygiene are appropriate. TRAVEL OUTSIDE OF THE [place] IN LAST 30 DAYS: No - Related Data Allergies/Adverse Reactions: influenza virus vaccine, specific [influenza virus vacc,specific] Allergy (Unknown, Verified 09/15/15 12:29) amoxicillin [Amoxicillin] Allergy (Verified 09/04/15 10:54) Past Medical History - Social History Smoking Status: Unknown if Ever Smoked Family History: DM, Hypertension - Past Medical History Cardiac Medical History: Reports: Hx Hypercholesterolemia, Hx Hypertension - borderline Denies: Hx Coronary Artery Disease, Hx Heart Attack Pulmonary Medical History: Denies: Hx Asthma, Hx Bronchitis, Hx COPD, Hx Pneumonia Neurological Medical History: Denies: Hx Cerebrovascular Accident, Hx Seizures Endocrine Medical History: Reports: Hx Diabetes Mellitus Type 2 Musculoskeletal Medical History: Denies Hx Arthritis Psychiatric Medical History: Denies: Hx Depression - Immunizations Hx Diphtheria, Pertussis, Tetanus Vaccination: Yes Physical Exam - Vital signs Vitals: Temp Pulse Resp BP Pulse Ox 98.7 F 108 H 16 169/79 H 100 11/27/19 08:40 11/27/19 08:40 11/27/19 08:40 11/27/19 08:40 11/27/19 08:40 Course - Re-evaluation Re-evalutation: 11/27/19 09:40 Given the above history and physical examination I will obtain a cardiac panel, EKG, and reassess. Patient is currently pain-free. She denies any nausea or c hest pain. Patient has no headache, leg swelling, or other signs of hypertensive urgency/emergency. Blood pressure as recorded here. EKG shows heart of 81, normal sinus rhythm, normal axis, no ST elevation or depression. 11/27/19 11:25 Labs and blood pressure as recorded. No obvious urinary tract infection. Still no chest or abdominal pain. EKG as recorded. Given the above history and phys ical, I believe it is reasonable to discharge the patient home with strict return precautions and follow-up with the primary care physician. Patient is very comfortable with this plan. - Vital Signs Vital signs: Temp Pulse Resp BP Pulse Ox 98.7 F 108 H 14 134/73 H 96 11/27/19 08:40 11/27/19 08:40 11/27/19 10:01 11/27/19 10:00 11/27/19 10:01 - Laboratory Result Diagrams: 11/27/19 09:25 11/27/19 09:25 Laboratory results interpreted by me: 11/27/19 11/27/19 09:25 09:25 RDW 14.2 H Lymph % (Auto) 12.6 L Seg Neutrophils % 80.7 H BUN 21 H Glucose 134 H Discharge - Discharge Clinical Impression: Elevated blood pressure reading, Nausea Condition: Good Disposition: HOME, SELF-CARE Additional Instructions: Come back immediately with any return of pain, fevers, vomiting, weakness or numbness, headache or leg swelling, or any other acute problems. Continue to take your blood pressure medications as prescribed and follow-up with your primary care physician for reassessment. Referrals: DERICK WILEY MD [Primary Care Provider] - Follow up as needed
[2019-11-27 09:47] LABS: ABSOLUTE EOSINOPHILS # (AUTO) 0.1 10^3/uL (0.0-0.6); ABSOLUTE LYMPHOCYTES (AUTO) 0.7 10^3/uL (0.5-4.7); ABSOLUTE MONOCYTES (AUTO) 0.2 10^3/uL (0.1-1.4); ABSOLUTE NEUT (AUTO) 4.5 10^3/uL (1.7-8.2); BASOPHILS % (AUTO) 0.6 % (0-2); EOSINOPHILS % (AUTO) 1.7 % (0-6); HEMATOCRIT 40.4 % (36.0-47.0); HEMOGLOBIN 13.6 g/dL (12.0-15.5); LYMPHOCYTES % (AUTO) 12.6 % (13-45); MEAN CORPUSCULAR HEMOGLOBIN 30.2 pg (27.0-33.4); MEAN CORPUSCULAR HGB CONC 33.5 g/dL (32.0-36.0); MEAN CORPUSCULAR VOLUME 90 fl (80-97); MONOCYTES % (AUTO) 4.4 % (3-13); PLATELET COUNT 198 10^3/uL (150-450); RED CELL DISTRIBUTION WIDTH 14.2 % (11.5-14.0); SEGMENTED NEUTROPHILS % (AUTO) 80.7 % (42-78); TOTAL CELLS COUNTED % (AUTO) 100 %; WHITE BLOOD COUNT 5.5 10^3/uL (4.0-10.5)
[2019-11-27 10:03] LABS: ALBUMIN 4.8 g/dL (3.5-5.0); ALKALINE PHOSPHATASE 111 U/L (38-126); ANION GAP 10 (5-19); ASPARTATE AMINO TRANSFERASE 29 U/L (14-36); BILIRUBIN,TOTAL 0.8 mg/dL (0.2-1.3); BLOOD UREA NITROGEN 21 mg/dL (7-20); CALCIUM 9.8 mg/dL (8.4-10.2); CARBON DIOXIDE 26 mmol/L (22-30); CHLORIDE 103 mmol/L (98-107); CREATINE KINASE 104 U/L (30-135); GLUCOSE 134 mg/dL (75-110); POTASSIUM 3.8 mmol/L (3.6-5.0); TOTAL PROTEIN 8.1 g/dL (6.3-8.2)
[2019-11-27 10:15] LABS: CREATINE KINASE MB 0.85 ng/mL (<4.55)
[2019-11-27 10:21] LABS: TROPONIN I < 0.012 ng/mL
[2019-11-27 11:23] LABS: APPEARANCE,URINE CLEAR; BILIRUBIN,URINE NEGATIVE (NEGATIVE); COLOR,URINE YELLOW; GLUCOSE, URINE NEGATIVE (NEGATIVE); KETONES,URINE NEGATIVE (NEGATIVE); PROTEIN,URINE NEGATIVE (NEGATIVE); URINE SPECIFIC GRAVITY 1.012; UROBILINOGEN,URINE NEGATIVE mg/dL (<2.0)
[2019-11-27 11:44] VITALS: BP 133/75
== END 2019-11-27 11:50 | disposition home or self-care (01) ==
LOC: ER 08:37
DX: R11.0 Nausea (principal); R03.0 Elevated blood-pressure reading, without diagnosis of hypertension
CPT/HCPCS: 36415; 80053; 81001; 82550; 82553; 84484; 85025; 93005; 93010; 99283